=== PATIENT | female | born 1940 | race Caucasian/White ===

== ENCOUNTER 2017-03-16 13:03 | Emergency (ER) | payer MEDICARE, BC, SELFPAY ==
[2017-03-16 13:18] VITALS: BP 167/71; PULSE 67; RESP 20; TEMP 36.8; O2SAT 96; BMI 37.4
--- NOTE | 2017-03-16 13:26 | PC.NURSE ---
Flu and strep test collected and sent per [facility] [employer]
[2017-03-16 13:45] LABS: Strep Scrn Group A (Rapid) Negative (Negative)
--- NOTE | 2017-03-16 14:30 | PC.NURSE ---
PATIENT LEFT AMA 03/16/17 AT 2 PM. LEFT AMA DUE TO HAVING TO BE IN [place] FOR DIALYSIS AT 3 PM
--- NOTE | 2017-03-16 14:32 | PC.NURSE ---
CLINICAL IMPRESSION ENTERED BY THIS NURSE, USUALLY IS SELECTED BY PHYSICAN, HOWEVER PHYSICAN DID NOT SEE THIS PATIENT. CLINICAL IMPRESSION IS A REQUIRED FIELD TO EXIT THIS CHARTING AND IS INVALIDID FOR THIS PATIENT
== END 2017-03-16 14:00 | disposition left against medical advice (07) ==
LOC: ER 14:36
PROVIDERS: Emergency Provider Family Medicine; Family Provider Internal Medicine Adolescent Medicine; PCP Internal Medicine Adolescent Medicine
DX: Z53.29 Procedure and treatment not carried out because of patient's decision for other reasons (principal)
CPT/HCPCS: 87275; 87276; 87430; 99211; 99284

== ENCOUNTER 2017-08-21 12:27 | Observation (INO) ==
--- NOTE | 2017-08-21 12:51 | Emergency Department Note ---
ED Disposition Clinical Impression: Drowsiness, Vomiting Disposition: Still a Patient Condition on Discharge: Fair - Critical Care Critical Care Time: No Attestation: On 08/21/17, the high probability of a clinically significant, sudden or life threatening deterioration of the following system(s) required my full and direct attention, intervention and personal management. The time I documented below is in addition to time spent performing reported procedures but includes the following listed in this critical care notation. Medical Decision Making - [place] Inquiry Pt receiving controlled substance: No Vital Signs: 08/21/17 12:33 08/21/17 13:40 08/21/17 14:35 Temperature 97.9 F Temperature Source Oral Pulse Rate [Right Brachial] 71 74 77 Respiratory Rate 18 18 18 Blood Pressure [Right Arm] 138/67 135/50 151/71 Blood Pressure Mean [Right Arm] 90 78 97 Blood Pressure Source [Right Arm] Automatic Cuff Automatic Cuff Automatic Cuff Blood Pressure Position [Right Arm] Sitting Sitting Sitting 02 Sat by Pulse Oximetry 96 94 L 96 Oxygen Delivery Method Room Air Room Air Room Air 08/21/17 14:57 Temperature Temperature Source Pulse Rate [Right Brachial] 80 Respiratory Rate 20 Blood Pressure [Right Arm] 160/70 Blood Pressure Mean [Right Arm] 100 Blood Pressure Source [Right Arm] Automatic Cuff Blood Pressure Position [Right Arm] Sitting 02 Sat by Pulse Oximetry 90 L Oxygen Delivery Method Room Air - Lab Data Lab Results 08/21/17 12:52: WBC 8.1, RBC 3.71 L, Hgb 11.6 L, Hct 36.7 L, MCV 98.8, MCH 31.4 H, MCHC 31.7 L, RDW 16.0, Plt Count 290, MPV 8.0, Neut % (Auto) 85.7 H, Lymph % (Auto) 6.9 L, [place] % (Auto) 5.3, Eos % (Auto) 1.7, Baso % (Auto) 0.4, Neut # ( Auto) 7.0, Lymph # (Auto) 0.4 L, [place] # (Auto) 0.4, Eos # (Auto) 0.1, Baso # ( Auto) 0.0, Total Counted 100, Neutrophils % (Manual) 95 H, Lymphocytes % (Manual ) 4 L, Monocytes % (Manual) 1 L, Platelet Estimate Normal, RBC Morphology Normal 08/21/17 12:52: Sodium 136, Potassium 5.2 H, Chloride 98, Carbon Dioxide 25, Anion Gap 18.2 H, BUN 43 H, Creatinine 5.28 H, Estimated Creat Clear 14, Estimated GFR 8 L*, Est GFR ( Amer) 10 L*, Glucose 180 H, Calcium 9.9, Total Bilirubin 0.3, AST 13 L, ALT 14, Alkaline Phosphatase 56, Total Protein 8.1, Albumin 3.3 L, Globulin 4.8 H, Albumin/Globulin Ratio 0.7 L 08/21/17 12:52: Total Creatine Kinase 41, CK-MB (CK-2) 1.4, CK-MB (CK-2) Rel Index 3.4, Troponin I < 0.02 Result diagrams: 08/21/17 12:52 08/21/17 12:52 Orders (Tests/Meds): ED MEDICATIONS Generic Name Dose Route Start Last Admin Trade Name Freq PRN Reason Stop Dose Admin Amlodipine Besylate 2.5 mg 08/22/17 09:00 Norvasc 2.5mg Tablet PO 09/21/17 08:59 DAILY PRAVEEN Aspirin 81 mg 08/22/17 09:00 Aspirin 81mg Chewable Tablet PO 09/21/17 08:59 DAILY [facility] Calcium Acetate 667 mg 08/22/17 09:00 Phoslo 667mg Capsule PO 09/21/17 08:59 DAILY PRAVEEN Furosemide 40 mg 08/22/17 09:00 Lasix 40mg Tablet PO 09/21/17 08:59 DAILY PRAVEEN Sodium Chloride 1,000 mls @ 50 mls/hr 08/21/17 15:15 Sod Chlor 0.9% 1000ml Bag IV 09/20/17 15:14 .Q20H PRAVEEN Insulin Human Lispro 0 unit 08/21/17 16:30 Humalog 100 Units/Ml 3ml Vial (Ssi) SQ 09/20/17 16:29 ACHS PRAVEEN Protocol Non-Formulary Medication 10 mg 08/21/17 21:00 Rosuvastatin Calcium [Rosuvastatin Calcium] PO 09/20/17 20:59 HS PRAVEEN Ondansetron HCl 4 mg 08/21/17 15:04 Zofran 4mg/2ml Vial IV 09/20/17 15:03 Q8HP PRN Nausea Sodium Chloride 10 ml 08/21/17 15:04 Saline Flush 10ml Syringe IV 09/20/17 15:03 NEEDED PRN Maintain IV Site Discontinued Medications Generic Name Dose Route Start Last Admin Trade Name Umm PRN Reason Stop Dose Admin Ondansetron HCl 4 mg 08/21/17 12:44 08/21/17 12:48 Zofran 4mg/2ml Vial IV 08/21/17 12:45 4 mg ONCE ONE Administration Ondansetron HCl 4 mg 08/21/17 14:58 Zofran 4mg/2ml Vial IV 08/21/17 14:59 ONCE ONE - Radiology Data #1 Image(s): Chest Image Reviewed: Yes I discussed the image results w/the radiologist Cardiomegaly. Vascular congestion, greater than previous. Questionable right basilar atelectasis versus minimal infiltrate. - CT Data CT Scan: Head Time Received: 13:[address] Reviewed: Yes: I have viewed the radiologist's interpretation Preliminary Findings: Normal/NAD - ECG Data Tracing #1 EKG interpreted by Juan Carlos Keating MD: Rhythm: sinus Rate: 83 [place]: normal Ectopy: none Conduction: normal ST Segment Changes: none T Wave Changes: none Q Waves: none No evidence of acute ischemia or injury - Physician Consults Physician Consulted: Ramonita Time: 14:45 Reason -: Admission Comment/Response: Agrees to admit the patient to the hospital. We discussed the patient's clinical information, including history, exam, laboratory and radiology results and ED course. Dr. Shipman states that he has been in contact with the patient's son. The patient's son requests that she be admitted here overnight, rather than being transferred, and then sent to dialysis tomorrow at 10:[address] Shipman says that he is agreeable with this and requests admission here. Per hospital procedure, I will write temporary bridge inpatient orders on the patient. Specific orders requested by the admitting physician: Normal saline at 50 cc/h. Hold sedating medications: Fluoxetine, gabapentin, hydrocodone. Zofran for nausea. Discussed x-ray reading, no antibiotics at this time. - Reevaluation(s) Time: 14:40 Reevaluation #1: Awake and alert and answering questions appropriately. Appears less drowsy, but has a wet wash rag on her forehead and is complaining of nausea. 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 General Adult HPI - General Chief complaint: Weakness Stated complaint: confused, can't stay awake Time Seen by Provider: 08/21/17 13:00 Mode of Arrival: Wheelchair Limitations: No Limitations Description of Symptoms (Recalled from ER Triage Doc. by RN): Pt caregiver reports pt been having "trouble staying awake" that began yesterday. Caregiver reports has been checking pt glucose, states it has been normal, states pt has renal dialysis thursday and it went normal. Pt states she "just doen't feel normal". - History of Present Illness HPI narrative: History obtained from patient and caregiver. Caregiver states that for 2 days she has been hard to keep awake. Patient denies any pain. States that she vomited once this morning. Has a slight cough starting today, pvc monitor has not noticed any cough. Denies fever or diarrhea. Denies trouble breathing. She is a dialysis patient and had dialysis on Thursday without difficulty. She was going to go to a wedding today and therefore today's dialysis on Thursday has been rescheduled for Thursday. No alcohol consumption, no new medications, no sedating medications according to caregiver. - Related Data Home Medications Medication Instructions Recorded Confirmed Amlodipine Besylate [Norvasc 2.5mg 2.5 mg PO DAILY 08/21/17 08/21/17 tablet] Aspirin 81 mg PO DAILY 08/21/17 08/21/17 Calcium Acetate [Phoslo 667mg 667 mg PO DAILY 08/21/17 08/21/17 capsule] Fluoxetine HCl 40 mg PO DAILY 08/21/17 08/21/17 Fluoxetine HCl [Prozac] 40 mg PO DAILY 08/21/17 08/21/17 Furosemide [Furosemide 40MG tAB] 40 mg PO DAILY 08/21/17 08/21/17 Gabapentin [Gabapentin 400mg Cap] 1,200 mg PO BID 08/21/17 08/21/17 Hydrocodone/Acetaminophen 1 tab PO DIRECTED 08/21/17 08/21/17 [Hydrocodone-Acetamin 7.5-325] Insulin Glargine,Hum.rec.anlog 30 units SQ HS 08/21/17 08/21/17 [Lantus Insulin 100units/mL 10mL vial] Rosuvastatin Calcium 10 mg PO HS 08/21/17 08/21/17 Allergies Allergy/AdvReac Type Severity Reaction Status Date / Time diphenhydramine Allergy Severe BREAKS OUT Verified 08/21/17 12:47 IN LARGE RED WELTS THAT ITCH AND HURT PER PT. Penicillins Allergy Severe BREAKS OUT Verified 08/21/17 12:47 IN LARGE RED WELTS THAT ITCH AND HURT PER PT. [facility] History I have reviewed the patient's past medical history: Yes Medical History: Reports:: Diabetes Mellitus Type 2 - Social History Alcohol Intake: never - Psychiatric History Expresses thoughts of harming self/others: None Suicide Plan Description: No Plan ROS Obtained: Yes All systems reviewed & no additional complaints - Constitutional Constitutional: Denies fever(s), Reports lethargy - Eyes Eyes: Denies change in vision - ENT Ears, Nose, Mouth, and Throat: Reports nasal discharge, Denies sore throat - Cardiovascular Cardiovascular: Denies chest pain - Respiratory Respiratory: Yes cough (Slight), No dyspnea - Gastrointestinal Gastrointestingal: Reports: vomiting. Denies: abdominal pain, diarrhea - Neurologic Neurologic: Denies headache(s) Physical Exam - General General appearance: in no apparent distress Comment: Mildly drowsy. Answers questions. Oriented to person and place, but not time. - Head Head exam: atraumatic, normocephalic, normal inspection - Eye Eye exam: Present: normal appearance, PERRL, EOMI - ENT ENT exam: Present: normal exam, normal oropharynx, mucous membranes moist, TM's normal bilaterally, normal external ear exam - Neck Neck exam: Present: normal inspection, full ROM, trachea midline. Absent: meningismus, lymphadenopathy - Chest Chest inspection: Present: normal inspection, symmetric chest wall rise. Absent : tenderness - Respiratory Respiratory exam: Present: normal lung sounds bilaterally. Absent: respiratory distress - Cardiovascular Cardiovascular exam: Present: regular rate, normal rhythm. Absent: JVD - Abdominal Exam Abdominal exam: Present: soft, normal bowel sounds. Absent: distention, tenderness, guarding - Extremities Exam Extremities exam: Present: other (Trace pretibial pitting edema). Absent: normal capillary refill - Back Exam Back exam: Present: normal inspection. Absent: tenderness - Neurological Exam Neurological exam: Present: alert, CN II-XII intact. Absent: motor sensory deficit - Psychiatric Psychiatric exam: Present: normal affect, normal mood - Skin Skin exam: Present: warm, dry, intact, normal color
[2017-08-21 13:06] LABS: Hematocrit 36.7 % (37.0-47.0); Hemoglobin 11.6 g/dL (12.2-16.2); Mean Corpuscular Hemoglobin 31.4 pg (27.0-31.2); Mean Corpuscular Volume 98.8 fl (81-99); Red Blood Count 3.71 M/mm3 (4.20-5.40); White Blood Count 8.1 K/mm3 (4.8-10.8)
[2017-08-21 13:07] LABS: Basophils % 0.4 % (0.1-2.0); Eosinophils # 0.1 K/mm3 (0.0-0.4); Eosinophils % 1.7 % (0.1-12.0); Lymphocytes # 0.4 K/mm3 (0.7-4.5); Lymphocytes % 6.9 K/mm3 (10-50); Mean Corpuscular HGB Conc 31.7 g/dL (31.8-35.4); Monocytes # 0.4 K/mm3 (0.1-1.0); Monocytes % 5.3 % (1.7-9.3); Neutrophils % 85.7 % (37.0-80.0); Platelet Count 290 K/mm3 (142-424)
[2017-08-21 13:12] LABS: Albumin Level 3.3 gm/dL (3.4-5.0); Albumin/Globulin Ratio 0.7 (1.1-1.8); Anion Gap 18.2 mEq/L (5-15); Bilirubin,Total 0.3 mg/dL (0.2-1.0); Calcium 9.9 mg/dL (8.5-10.1); Globulin 4.8 gm/dl (1.3-3.2); Potassium 5.2 mmoL/L (3.5-5.1); Total Protein,Serum 8.1 gm/dL (6.4-8.2)
[2017-08-21 13:27] LABS: Creatine Kinase 41 U/L (26-192)
[2017-08-21 13:38] LABS: Lymphocytes % 4 % (10-50); Monocytes % 1 % (2-9); Neutrophils % 95 % (42-76); Total Cells Counted 100
[2017-08-21 13:40] LABS: RBC Morphology Normal
--- NOTE | 2017-08-21 15:36 | Pharmacy Consult Notes ---
[facility] Pharmacy VTE Monitoring - Patient Demographics Admission date: 08/21/17 Report Date: 08/21/17 Time: 15:36 Allergies/Adverse Reactions: Patient Allergies diphenhydramine Allergy (Severe, Verified 08/21/17 12:47) BREAKS OUT IN LARGE RED WELTS THAT ITCH AND HURT PER PT. Penicillins Allergy (Severe, Verified 08/21/17 12:47) BREAKS OUT IN LARGE RED WELTS THAT ITCH AND HURT PER PT. Height: 1.6 m Weight: 97.522 kg Patient Problems: Current Active Problems Drowsiness (Acute) Vomiting (Acute) - VTE Risk Labs: VTE Related Lab Results Hgb 11.6 g/dL (12.2-16.2) L 08/21/17 12:52 Hct 36.7 % (37.0-47.0) L 08/21/17 12:52 Plt Count 290 K/mm3 (142-424) 08/21/17 12:52 BUN 43 mg/dL (7-18) H 08/21/17 12:52 Creatinine 5.28 mg/dL (0.55-1.02) H 08/21/17 12:52 Estimated Creat Clear 14 mL/min (0-300) 08/21/17 12:52 - Prophylaxis VTE Prophylaxis Ordered?: Yes Types of VTE Prophylaxis: TEDS Knee High Location of Applied Device: Bilateral Lower Extremeties
--- NOTE | 2017-08-21 17:42 | History & Physical Report ---
*Admission Date: 08/21/17 *Chief complaint: Drowsiness and lethargy *History of present illness: 77-year-old white female with end-stage renal disease on hemodialysis who this morning was unable to awaken like she normally does. She was scheduled to have dialysis today but this had been previously postponed until tomorrow because of a family wedding of 1 of her grandsons that was occurring this evening. The patient however failed to improve as far as mental status issues and was brought to the emergency department. In the emergency department feet she was found to be lethargic but improving with time and observation. CT scan of head was unchanged, chest x-ray showed questionable infiltrates and her labs-other than her markedly abnormal yet at baseline renal function and electrolyte abnormalities did not reveal an etiology of her mental status changes. The decision was made to admit her to observation for cautious IV fluids, holding her medicines that could potentiate a change in level of consciousness and see how she does overnight. I examined her on second floor approximately 5 minutes ago she was improved, recognized me and was oriented 2 and nursing staff reported that she was much improved over her admission exam. [facility] History Medical History: Reports:: Atherosclerotic Heart Disease, Carotid Stenosis, Congestive Heart Failure (Systolic and diastolic-chronic), Chronic Obstructive Pulmonary Disease (COPD), Diabetes Mellitus Type 2, Home Oxygen, Hyperlipidemia , Hypertension, Renal Disease (On hemodialysis for the past 5 years), Renal Insufficiency, Transient Ischemic Attacks (TIA) - *Social History Educational Level: Attended College Smoking Status: Former smoker Tobacco Type: cigarettes Alcohol Intake: never Occupational Status: retired Housing: house Household Members: caregiver - Psychiatric History Expresses thoughts of harming self/others: None Suicide Plan Description: No Plan Review of Systems - Review of Systems Review of systems:: unable to obtain Patient reports no pain, no shortness of air, but is unable to give a real detailed history or review of systems. - *Neurologic Denies headache(s) Meds Home Medications Medication Instructions Recorded Confirmed Type Amlodipine Besylate [Norvasc 2.5mg 2.5 mg PO DAILY 08/21/17 08/21/17 History tablet] Aspirin 81 mg PO DAILY 08/21/17 08/21/17 History Aspirin [Aspirin 81mg EC Tab] 81 mg PO DAILY 08/21/17 08/21/17 History Calcium Acetate [Phoslo 667mg 667 mg PO DAILY 08/21/17 08/21/17 History capsule] Cetirizine HCl [Zyrtec] 10 mg PO DAILY 08/21/17 08/21/17 History Fluoxetine HCl 40 mg PO DAILY 08/21/17 08/21/17 History Furosemide [Furosemide 40MG tAB] 40 mg PO DAILY 08/21/17 08/21/17 History Gabapentin [Gabapentin 400mg Cap] 1,200 mg PO BID 08/21/17 08/21/17 History Hydrocodone/Acetaminophen 1 tab PO DIRECTED 08/21/17 08/21/17 History [Hydrocodone-Acetamin 7.5-325] Insulin Glargine,Hum.rec.anlog 30 units SQ HS 08/21/17 08/21/17 History [Lantus Insulin 100units/mL 10mL vial] Krill/Om-3/Dha/Epa/Phospho/Ast 1 each PO DAILY 08/21/17 08/21/17 History [Megared [place]-3 Krill Oil Sfgl] Multivit-Min/Iron/Folic/Lutein 1 each PO DAILY 08/21/17 08/21/17 History [Centrum Silver Women Tablet] Mv,Iron,Mins/Folic Acid/Biotin 1 each PO DAILY 08/21/17 08/21/17 History [Hair Formula Tablet] Rosuvastatin Calcium 10 mg PO HS 08/21/17 08/21/17 History Ubidecarenone [Coq-10] 100 mg PO DAILY 08/21/17 08/21/17 History Allergies Allergy/AdvReac Type Severity Reaction Status Date / Time diphenhydramine Allergy Severe BREAKS OUT Verified 08/21/17 12:47 IN LARGE RED WELTS THAT ITCH AND HURT PER PT. Penicillins Allergy Severe BREAKS OUT Verified 08/21/17 12:47 IN LARGE RED WELTS THAT ITCH AND HURT PER PT. Exam Vital signs and Labs for Last 24 Hours: Temp Pulse Resp BP Pulse Ox 97.0 F L 51 L 16 103/82 92 L 08/21/17 16:00 08/21/17 16:00 08/21/17 16:00 08/21/17 16:00 08/21/17 16:00 Laboratory Results - last 24 hr 08/21/17 12:52: WBC 8.1, RBC 3.71 L, Hgb 11.6 L, Hct 36.7 L, MCV 98.8, MCH 31.4 H, MCHC 31.7 L, RDW 16.0, Plt Count 290, MPV 8.0, Neut % (Auto) 85.7 H, Lymph % (Auto) 6.9 L, [place] % (Auto) 5.3, Eos % (Auto) 1.7, Baso % (Auto) 0.4, Neut # ( Auto) 7.0, Lymph # (Auto) 0.4 L, [place] # (Auto) 0.4, Eos # (Auto) 0.1, Baso # ( Auto) 0.0, Total Counted 100, Neutrophils % (Manual) 95 H, Lymphocytes % (Manual ) 4 L, Monocytes % (Manual) 1 L, Platelet Estimate Normal, RBC Morphology Normal 08/21/17 12:52: Sodium 136, Potassium 5.2 H, Chloride 98, Carbon Dioxide 25, Anion Gap 18.2 H, BUN 43 H, Creatinine 5.28 H, Estimated Creat Clear 14, Estimated GFR 8 L*, Est GFR ( Amer) 10 L*, Glucose 180 H, Calcium 9.9, Total Bilirubin 0.3, AST 13 L, ALT 14, Alkaline Phosphatase 56, Total Protein 8.1, Albumin 3.3 L, Globulin 4.8 H, Albumin/Globulin Ratio 0.7 L 08/21/17 12:52: Total Creatine Kinase 41, CK-MB (CK-2) 1.4, CK-MB (CK-2) Rel Index 3.4, Troponin I < 0.02 08/21/17 16:44: POC Glucose 167 H I & O for Last 24 hours: Intake & Output 08/19/17 08/20/17 08/21/17 08/22/17 11:59 11:59 11:59 11:59 Weight 212 lb 9 oz Narrative: Patient is lying in bed, in no distress. Awakens easily to verbal stimuli. Does appear sleepy. No cranial nerve deficits noted. Oropharynx clear but slightly dry. Anterior lung cisneros are clear. Heart rate regular with previously noted holosystolic murmur and carotid radiation. Abdomen soft and nontender. Fistula site looks good with normal thrill. H&P: Result - Labs Labs: Short CBC 08/21/17 Range/Units 12:52 WBC 8.1 (4.8-10.8) K/mm3 Hgb 11.6 L (12.2-16.2) g/dL Hct 36.7 L (37.0-47.0) % Plt Count 290 (142-424) K/mm3 BMP 08/21/17 12:52 Sodium 136 Potassium 5.2 H Chloride 98 Carbon Dioxide 25 BUN 43 H Creatinine 5.28 H Glucose 180 H Calcium 9.9 Cardiac Enzymes 08/21/17 Range/Units 12:52 Total Creatine Kinase 41 (26-192) U/L CK-MB (CK-2) 1.4 (0.0-3.6) ng/ml Troponin I < 0.02 (0.00-0.06) ng/ml Liver Function 08/21/17 Range/Units 12:52 Total Bilirubin 0.3 (0.2-1.0) mg/dL AST 13 L (15-37) U/L ALT 14 (12-78) U/L Alkaline Phosphatase 56 (46-116) U/L Albumin 3.3 L (3.4-5.0) gm/dL Assessment and Plan (1) Drowsiness Current visit: Yes Status: Acute Category: Medical Code(s): R40.0 - Somnolence - Assessment and plan all Dx Assessment and Plan for all problems:: Plan will be to cautiously hydrate patient overnight with 50 mL's per hour of fluid. We will hold fluoxetine, [place] and gabapentin. If she is able to wake up tomorrow and be transported without problems and is back to her baseline I believe she can be safely sent to her dialysis appointment and then home. I would recommend cutting down [place] administration to twice daily as well as cutting back gabapentin administration to twice daily. Obviously if the situation worsens she would need to be transferred to facility that has dialysis capability for further evaluation. Chest x-ray reading noted. Clinically she has no fever, no coughing. Her caregivers report no coughing. Watch this tomorrow.
[2017-08-22 06:08] LABS: Basophils % 0.3 % (0.1-2.0); Eosinophils # 0.1 K/mm3 (0.0-0.4); Lymphocytes # 0.5 K/mm3 (0.7-4.5)
[2017-08-22 06:16] LABS: Anion Gap 16.9 mEq/L (5-15); Calcium 9.5 mg/dL (8.5-10.1); Potassium 4.9 mmoL/L (3.5-5.1)
[2017-08-22 06:17] LABS: Eosinophils % 1.6 % (0.1-12.0); Lymphocytes % 6.4 K/mm3 (10-50); Mean Corpuscular HGB Conc 30.3 g/dL (31.8-35.4); Mean Corpuscular Hemoglobin 30.3 pg (27.0-31.2); Mean Corpuscular Volume 100.2 fl (81-99); Monocytes # 0.6 K/mm3 (0.1-1.0); Monocytes % 8.1 % (1.7-9.3); Neutrophils # 6.5 K/mm3 (1.8-7.8); Neutrophils % 83.6 % (37.0-80.0); Platelet Count 255 K/mm3 (142-424); Red Blood Count 3.29 M/mm3 (4.20-5.40); Red Cell Distribution Width 16.5 % (11.5-17.5); White Blood Count 7.7 K/mm3 (4.8-10.8)
--- NOTE | 2017-08-22 07:04 | Discharge Summary ---
General - General Admission date:: 08/21/17 Discharge date: 08/22/17 HPI HPI: 77-year-old white female with end-stage renal disease on hemodialysis who this morning was unable to awaken like she normally does. She was scheduled to have dialysis today but this had been previously postponed until tomorrow because of a family wedding of 1 of her grandsons that was occurring this evening. The patient however failed to improve as far as mental status issues and was brought to the emergency department. In the emergency department feet she was found to be lethargic but improving with time and observation. CT scan of head was unchanged, chest x-ray showed questionable infiltrates and her labs-other than her markedly abnormal yet at baseline renal function and electrolyte abnormalities did not reveal an etiology of her mental status changes. The decision was made to admit her to observation for cautious IV fluids, holding her medicines that could potentiate a change in level of consciousness and see how she does overnight. I examined her on second floor approximately 5 minutes ago she was improved, recognized me and was oriented 2 and nursing staff reported that she was much improved over her admission exam. Hospital Course Hospital Course: Patient was admitted for observation, started on gentle IV fluid hydration, and medications that could affect her mentation or level of consciousness were held. Patient improved throughout the day after admission and did well overnight. She remained alert and oriented x2 (person and place) at the minimum and occasionally was oriented to time. As she became more awake she was able to ambulate. Her appetite improved. She awakened easily on the morning of the and answered questions appropriately. Decision was made to discharge the patient so she can have outpatient dialysis. She will follow- up in Dr. Shipman's office next week. I did discuss with the patient that her gabapentin should be cut back to daily. Her hydrocodone is listed as needed and should not be more than twice a day. Hold cetirizine. Continue fluoxetine. Patient discharged from the hospital on the morning of the night so that she could attend dialysis on the morning of August 22 Objective Vital signs: Temp Pulse Resp BP Pulse Ox 98.2 F 69 18 138/66 90 L 08/22/17 03:58 08/22/17 03:58 08/22/17 03:58 08/22/17 03:58 08/22/17 03:58 Results Labs on day of discharge: Labs from last 24 hours 08/22/17 08/22/17 08/22/17 06:09 05:40 05:40 WBC 7.7 RBC 3.29 L Hgb 10.0 L D Hct 33.0 L MCV 100.2 H MCH 30.3 MCHC 30.3 L RDW 16.5 Plt Count 255 MPV 8.0 Neut % (Auto) 83.6 H Lymph % (Auto) 6.4 L [place] % (Auto) 8.1 Eos % (Auto) 1.6 Baso % (Auto) 0.3 Neut # (Auto) 6.5 Lymph # (Auto) 0.5 L [place] # (Auto) 0.6 Eos # (Auto) 0.1 Baso # (Auto) 0.0 Total Counted Neutrophils % (Manual) Lymphocytes % (Manual) Monocytes % (Manual) Platelet Estimate RBC Morphology Sodium 139 Potassium 4.9 Chloride 103 Carbon Dioxide 24 Anion Gap 16.9 H BUN 49 H Creatinine 5.30 H Estimated Creat Clear 13 Estimated GFR 8 L* Est GFR ( Amer) 9 L* Glucose 123 H D POC Glucose 107 Calcium 9.5 Total Bilirubin AST ALT Alkaline Phosphatase Total Creatine Kinase CK-MB (CK-2) CK-MB (CK-2) Rel Index Troponin I Total Protein Albumin Globulin Albumin/Globulin Ratio 08/21/17 08/21/17 08/21/17 20:51 16:44 12:52 WBC RBC Hgb Hct MCV MCH MCHC RDW Plt Count MPV Neut % (Auto) Lymph % (Auto) [place] % (Auto) Eos % (Auto) Baso % (Auto) Neut # (Auto) Lymph # (Auto) [place] # (Auto) Eos # (Auto) Baso # (Auto) Total Counted Neutrophils % (Manual) Lymphocytes % (Manual) Monocytes % (Manual) Platelet Estimate RBC Morphology Sodium Potassium Chloride Carbon Dioxide Anion Gap BUN Creatinine Estimated Creat Clear Estimated GFR Est GFR ( Amer) Glucose POC Glucose 154 H 167 H Calcium Total Bilirubin AST ALT Alkaline Phosphatase Total Creatine Kinase 41 CK-MB (CK-2) 1.4 CK-MB (CK-2) Rel Index 3.4 Troponin I < 0.02 Total Protein Albumin Globulin Albumin/Globulin Ratio 08/21/17 08/21/17 12:52 12:52 WBC 8.1 RBC 3.71 L Hgb 11.6 L Hct 36.7 L MCV 98.8 MCH 31.4 H MCHC 31.7 L RDW 16.0 Plt Count 290 MPV 8.0 Neut % (Auto) 85.7 H Lymph % (Auto) 6.9 L [place] % (Auto) 5.3 Eos % (Auto) 1.7 Baso % (Auto) 0.4 Neut # (Auto) 7.0 Lymph # (Auto) 0.4 L [place] # (Auto) 0.4 Eos # (Auto) 0.1 Baso # (Auto) 0.0 Total Counted 100 Neutrophils % (Manual) 95 H Lymphocytes % (Manual) 4 L Monocytes % (Manual) 1 L Platelet Estimate Normal RBC Morphology Normal Sodium 136 Potassium 5.2 H Chloride 98 Carbon Dioxide 25 Anion Gap 18.2 H BUN 43 H Creatinine 5.28 H Estimated Creat Clear 14 Estimated GFR 8 L* Est GFR ( Amer) 10 L* Glucose 180 H POC Glucose Calcium 9.9 Total Bilirubin 0.3 AST 13 L ALT 14 Alkaline Phosphatase 56 Total Creatine Kinase CK-MB (CK-2) CK-MB (CK-2) Rel Index Troponin I Total Protein 8.1 Albumin 3.3 L Globulin 4.8 H Albumin/Globulin Ratio 0.7 L DS: Diagnosis - Discharge Diagnosis (1) Drowsiness Status: Acute Discharge Plan - Patient Discharge Instructions ACTIVITY: Continue current activity DIET: continue same diet - Follow up Plan Follow up with: Domingo Shipman MD [Primary Care Provider] - 1 week Disposition: Home, Self-Longterm Medications: Home Medications Medication Instructions Recorded Confirmed Type Amlodipine Besylate [Norvasc 2.5mg 2.5 mg PO DAILY 08/21/17 08/21/17 History tablet] Aspirin 81 mg PO DAILY 08/21/17 08/21/17 History Aspirin [Aspirin 81mg EC Tab] 81 mg PO DAILY 08/21/17 08/21/17 History Calcium Acetate [Phoslo 667mg 667 mg PO DAILY 08/21/17 08/21/17 History capsule] Cetirizine HCl [Zyrtec] 10 mg PO DAILY 08/21/17 08/21/17 History Fluoxetine HCl 40 mg PO DAILY 08/21/17 08/21/17 History Furosemide [Furosemide 40MG tAB] 40 mg PO DAILY 08/21/17 08/21/17 History Gabapentin [Gabapentin 400mg Cap] 1,200 mg PO BID 08/21/17 08/21/17 History Hydrocodone/Acetaminophen 1 tab PO DIRECTED 08/21/17 08/21/17 History [Hydrocodone-Acetamin 7.5-325] Insulin Glargine,Hum.rec.anlog 30 units SQ HS 08/21/17 08/21/17 History [Lantus Insulin 100units/mL 10mL vial] Krill/Om-3/Dha/Epa/Phospho/Ast 1 each PO DAILY 08/21/17 08/21/17 History [Megared [place]-3 Krill Oil Sfgl] Multivit-Min/Iron/Folic/Lutein 1 each PO DAILY 08/21/17 08/21/17 History [Centrum Silver Women Tablet] Mv,Iron,Mins/Folic Acid/Biotin 1 each PO DAILY 08/21/17 08/21/17 History [Hair Formula Tablet] Rosuvastatin Calcium 10 mg PO HS 08/21/17 08/21/17 History Ubidecarenone [Coq-10] 100 mg PO DAILY 08/21/17 08/21/17 History Prescriptions/Medication Reconciliation: Continue Rosuvastatin Calcium 10 mg PO HS Furosemide [Furosemide 40MG tAB] 40 mg PO DAILY Fluoxetine HCl 40 mg PO DAILY Calcium Acetate [Phoslo 667mg capsule] 667 mg PO DAILY Aspirin 81 mg PO DAILY Amlodipine Besylate [Norvasc 2.5mg tablet] 2.5 mg PO DAILY Mv,Iron,Mins/Folic Acid/Biotin [Hair Formula Tablet] 1 each PO DAILY Ubidecarenone [Coq-10] 100 mg PO DAILY Multivit-Min/Iron/Folic/Lutein [Centrum Silver Women Tablet] 1 each PO DAILY Krill/Om-3/Dha/Epa/Phospho/Ast [Megared [place]-3 Krill Oil Sfgl] 1 each PO DAILY Hydrocodone/Acetaminophen [Hydrocodone-Acetamin 7.5-325] 1 tab PO DIRECTED #30 Insulin Glargine,Hum.rec.anlog [Lantus Insulin 100units/mL 10mL vial] 30 units SQ HS Aspirin [Aspirin 81mg EC Tab] 81 mg PO DAILY Changed Gabapentin [Gabapentin 400mg Cap] 1,200 mg PO DAILY #0 Discontinued Cetirizine HCl [Zyrtec] 10 mg PO DAILY
== END 2017-08-22 12:20 | disposition short-term general hospital (02) ==
LOC: 2ND 12:27 → ER 12:27 → 2ND 15:15
PROVIDERS: ADMIT Internal Medicine Adolescent Medicine; ATTEND Internal Medicine Adolescent Medicine
CPT/HCPCS: 36415; 70450; 71010; 71045; 80048; 80053; 82550; 82553; 82962; 84484; 85007; 85025; 93005; 99284; G0378; J2405